=== PATIENT | male | born 1990 | race Hispanic/Latino ===

== ENCOUNTER 2021-07-12 16:40 | Emergency (ER) | payer MEDICARE ==
[2021-07-12 18:54] LABS: Hemoglobin 15.3 g/dL (13.5-17.5); Mean Corpuscular HGB CONC 33.3 g/dL (32.0-36.0); Mean Corpuscular Volume 86.9 fl (81.2-95.1); Mean Platelet Volume 9.5 fl (7.4-10.4); Platelet Count 390 10x3/uL (150-450); Red Blood Cell (RBC) Count 5.28 10x6/uL (4.32-5.72); White Blood Cell (WBC) Count 7.9 10x3/uL (3.5-10.5)
[2021-07-12 18:55] LABS: MDiff Complete? YES; Manual Diff?? YES
[2021-07-12 19:12] LABS: ALT (SGPT) 156 U/L (8-55); AST (SGOT) 169 U/L (5-34); Albumin 4.1 g/dL (3.5-5.0); Alkaline Phosphatase 83 U/L (40-110); Anion Gap 16 mmol/L (10-20); BUN (Urea Nitrogen) 12 mg/dL (8.9-20.6); Bilirubin, Total 0.6 mg/dL (0.2-1.2); Calc. Creatinine Clearance 0 mL/min (70-130); Calcium 8.8 mg/dL (7.8-10.44); Carbon Dioxide 26 mmol/L (22-29); Chloride 102 mmol/L (98-107); Globulin 3.4 g/dL (2.4-3.5); Glucose 100 mg/dL (70-105); Potassium 3.6 mmol/L (3.5-5.1); Protein, Total 7.5 g/dL (6.0-8.3); Sodium 140 mmol/L (136-145)
[2021-07-12 19:35] LABS: Band 7 % (5-11); Eosinophils 1 % (0-10); Lymphocytes 14 % (21-51); Monocytes 14 % (0-10); Neutrophil 62 % (42-75); Reactive Lymphocytes 2 % (0-10)
[2021-07-12 19:36] LABS: Platelet Morphology Comment Appears Adequate
[2021-07-12] MEDS ORDERED: Ventolin HFA Inhaler 60 PUFF INHALER ONE (21:46)
== END 2021-07-12 22:35 | disposition home or self-care (01) ==
LOC: CSHERS 16:40
DX: U07.1 COVID-19 (principal); E78.00 Pure hypercholesterolemia, unspecified; M19.90 Unspecified osteoarthritis, unspecified site
CPT/HCPCS: 36415; 71045; 71275; 80053; 83605; 84484; 85025; 85379; 93005; 94760

== ENCOUNTER 2022-02-01 07:54 | Emergency (ER) | payer MEDICARE ==
[2022-02-01] MEDS ORDERED: Ondansetron ODT 4 MG TAB ONE (09:23)
[2022-02-01] MEDS ORDERED: Acetaminophen 325 MG TAB ONE (09:23)
[2022-02-01 10:07] LABS: Bilirubin Neg (Negative); Blood, Urine Negative (Negative); Clarity Clear (Clear); Glucose, Urine (Dipstick) Normal (Negative); Ketone, Urine Negative (Negative); Leukocyte Negative (Negative); Nitrite Negative (Negative); Protein, Urine (Dipstick) Negative (Neg-Trace); Specific Gravity, Urine 1.005 (1.002-1.036); Urobilinogen Normal mg/dL (Less than 2)
== END 2022-02-01 09:52 | disposition home or self-care (01) ==
LOC: CSHERS 07:54
DX: R11.2 Nausea with vomiting, unspecified (principal); E78.00 Pure hypercholesterolemia, unspecified; G43.909 Migraine, unspecified, not intractable, without status migrainosus
CPT/HCPCS: 81003; 93005; Q0162